=== PATIENT | female | born 1970 | race African-American/Black ===

== ENCOUNTER 2021-10-27 09:51 | Emergency (ER) | payer OTHER ==
[~2021-10-27] VITALS: Ht 175.3 cm; Wt 73.0 kg
[2021-10-27 11:11] LABS: BASOPHILS % 0.3 % (0.0-2.0); EOSINOPHILS % 0.6 % (0.0-5.0); HEMATOCRIT. 36.5 % (36.0-48.0); LYMPHOCYTES % 25.2 % (20.0-50.0); MEAN CORPUSCULAR HEMOGLOBIN 29.3 pg (28.0-32.0); MEAN CORPUSCULAR VOLUME 89.5 fL (81.0-99.0); MEAN PLATELET VOLUME 7.8 fl (7.4-10.4); MONOCYTES % 10.6 % (2.0-8.0); NEUTROPHILS % 63.3 % (40.0-76.0); PLATELET 215 x1000/uL (130-400); RED BLOOD CELL COUNT 4.08 mill/uL (4.2-5.4); RED CELL DISTRIBUTION WIDTH 17.7 % (11.6-14.6)
[2021-10-27 11:23] LABS: CHLORIDE 111 mEq/L (98-107)
[2021-10-27 11:32] LABS: ETHANOL BLOOD 127 mg/dL
[2021-10-27 16:02] LABS: CLARITY URINE TURBID (CLEAR); COLOR URINE DARK YELLOW (YELLOW); KETONES URINE 1+ (NEGATIVE); LEUKOCYTE ESTERASE URINE NEGATIVE (NEGATIVE); NITRITE URINE NEGATIVE (NEGATIVE); OCCULT BLOOD URINE NEGATIVE (NEGATIVE); PROTEIN URINE TRACE (NEGATIVE); SPECIFIC GRAVITY URINE 1.027 (1.005-1.030)
[2021-10-27 16:13] LABS: *AMPHETAMINES SCREEN URINE NEGATIVE (NEGATIVE); *BARBITURATES SCREEN URINE NEGATIVE (NEGATIVE); *BENZODIAZEPINES SCREEN URINE PRESUMTIVE POSITIVE (NEGATIVE); *COCAINE SCREEN URINE NEGATIVE (NEGATIVE); CANNABINOID URINE SCREEN PRESUMTIVE POSITIVE (NEGATIVE); METHADONE URINE SCREEN NEGATIVE (NEGATIVE); OPIATES URINE SCREEN NEGATIVE (NEGATIVE); PHENCYCLIDINE URINE SCREEN NEGATIVE (NEGATIVE)
[2021-10-27] MEDS ORDERED: ACETAMINOPHEN 325MG TABLET PO ONE (18:15)
[2021-10-28] MEDS ORDERED: BUSP5TAB3 MT (13:28)
[2021-10-28] MEDS ORDERED: IBUPROFEN 600MG TABLET PO SCH (13:45)
[2021-10-28 14:24] VITALS: BP 132/78
== END 2021-10-28 16:57 | disposition home or self-care (01) ==
LOC: ER 09:51
DX: U07.1 COVID-19 (principal); F10.129 Alcohol abuse with intoxication, unspecified; Y90.5 Blood alcohol level of 100-119 mg/100 ml; F41.9 Anxiety disorder, unspecified; R45.86 Emotional lability; F13.90 Sedative, hypnotic, or anxiolytic use, unspecified, uncomplicated; F12.90 Cannabis use, unspecified, uncomplicated
CPT/HCPCS: 36415; 80053; 80305; 80307; 80320; 80329; 81003; 82962; 85025; 99285; C9803; U0003; U0005; G0480